=== PATIENT | male | born 1960 | race Caucasian/White ===

== ENCOUNTER 2017-07-05 06:16 | Observation (INO) | payer OTHER ==
[~2017-07-05] VITALS: Ht 162.6 cm; Wt 144.6 kg
--- NOTE | ~2017-07-05 | HC ---
[facility] [place] [address] [place] [address] CONSULTATION Name: CARLA CHAPMAN Room #: 215-P [facility] M.R.#: [id number] Admission: 07/05/17 Attend Phys: Bebeto Sheikh Discharge: Date of : 60 Report #: [id number] THIS REPORT FOR: //name// CC: Eran Sheikh DATE OF SERVICE: 07/06/2017 HISTORY OF PRESENT ILLNESS: The patient is a 56-year-old single white male who I was asked to see in the hospital today after he complained of chest pain. The patient initially presented in September 2015. He lives in [place] and was having intermittent sharp chest pain that went into his back. He apparently was admitted to [facility] in [place]. He claims that they were not sure why he was having chest pain. He apparently had a GI workup at that time and was found to have hemorrhoids. However, he also did a stress test that was abnormal. He was found to have coronary artery disease. He underwent a heart catheterization by my partner, Dr. Yan. He was found to have a 90% stenosis of the right coronary artery. He then had 3 drug-eluting stents placed in the right coronary artery. He states he had a stress test a year later. He last saw Dr. Yan in December of this year. He states he was doing well until yesterday, he awakened at 2:30 in the morning with a sharp pain in his chest. He took a nitroglycerin , which seemed to help. Yesterday, he was on his way to work, he again had a sharp chest pain. He drove himself to the emergency room here at [facility]. He had the pain off and on yesterday. It was not related to food. He had no recent fever, cough, blood in stool. Denied any belching with the episode. No trauma to his chest and no rash. He was admitted for further evaluation and treatment. PAST MEDICAL HISTORY: Otherwise, significant for no major surgical procedures. He does have a history of hypertension and hyperlipidemia. MEDICATIONS: Include Plavix, amlodipine, fenofibrate, carvedilol, Livalo, Synthroid, aspirin. ALLERGIES: He has intolerance to PENICILLIN. He previously could not tolerate EFFIENT . FAMILY HISTORY: His father had coronary artery bypass surgery. SOCIAL HISTORY: He is , lives in [place]. He works loading trucks. He quit smoking in 2010. Rarely drinks alcohol. REVIEW OF SYSTEMS: He has had no history of stroke, asthma, peptic ulcer disease, liver disease, kidney disease or cancer. [facility] [address] [place] [address] CONSULTATION Name: CARLA CHAPMAN Room #: 215-P [facility] Igor Pedersen#: [id number] Admission: 07/05/17 Attend Phys: Bebeto Sheikh Discharge: Date of : 60 Report #: [id number] PHYSICAL EXAMINATION: GENERAL: Revealed a middle-aged male who was lying in bed. He appeared in no distress. VITAL SIGNS: He had a blood pressure of 130/70, pulse was 50. He was afebrile. HEENT: He was anicteric. Conjunctivae pink. Mucous membranes moist. NECK: Veins nondistended. No carotid bruits heard. His neck was supple. CHEST: Clear to auscultation. CARDIAC: Regular rate and rhythm. No significant murmur. ABDOMEN: Soft, nontender. EXTREMITIES: Had no edema. Posterior tibial pulse 2+ bilaterally. SKIN: Warm and dry. NEUROLOGIC: Nonfocal. DIAGNOSTIC DATA: His ECG was done yesterday, but unfortunately there does not appear to be an ECG in his chart for review at this time. His workup yesterday, he had a chest x-ray that showed cardiomegaly, otherwise clear lung brown. LABORATORY DATA: Sodium 141, creatinine 1.6. White blood cell count 7.1, hemoglobin 14.1. IMPRESSION AND RECOMMENDATIONS: 1. Chest pain. Somewhat atypical for angina. No evidence of acute myocardial infarction. In light of his history of coronary artery disease, I would recommend a nuclear stress test. 2. Hypertension. The patient has been on a calcium haylie and beta haylie. 3. Hyperlipidemia. The patient is on fenofibrate and a statin drug. 4. History of 3 drug-eluting stents in the right coronary artery year and a half ago. The patient is still on Plavix. <ELECTRONICALLY SIGNED> By: Castro Coffey MD, [facility] 07/06/17 1428 [id number] Castro Coffey MD, FAC /nt
--- NOTE | ~2017-07-05 | EKG ---
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
[2017-07-05 06:38] VITALS: BP 144/85
[2017-07-05 06:45] LABS: BASOPHILS 1.1 % (0.0-2.0); EOSINOPHILS 5.2 % (0.0-3.0); HEMATOCRIT 41.3 % (42.0-52.0); HEMOGLOBIN 14.1 gm/dL (14.0-18.0); LYMPHOCYTES 26.9 % (24.0-44.0); MCH 30.2 pg (26.0-34.0); MCHC 34.1 g/dL (28.0-37.0); MCV 88.4 fL (80.0-100.0); MONOCYTES 10.5 % (1.0-8.0); PLATELET COUNT 360 thou/uL (150-400); POLYS 56.3 % (36.0-66.0); RBC 4.67 mil/uL (4.50-6.00); RDW 13.4 % (10.5-14.5); WBC 7.1 thou/uL (4.0-11.0)
[2017-07-05] MEDS ORDERED: PLAVIX 75 MG TA75 M1 PO (06:49)
[2017-07-05 06:52] LABS: ANION GAP 6 mmol/L (7-16); BUN 20 mg/dL (7-18); CALCIUM 9.3 mg/dL (8.5-10.1); CHLORIDE 106 mmol/L (98-107); CO2 29 mmol/L (21-32); CREATININE 1.6 mg/dL (0.7-1.3); GLUCOSE 112 mg/dL (74-106); POTASSIUM 3.9 mmol/L (3.5-5.1); SODIUM 141 mmol/L (136-145)
[2017-07-05] MEDS ORDERED: NORVASC5 MG PO (07:00)
[2017-07-05 07:01] LABS: TROPONIN-I < 0.04 ng/mL (<0.04-0.07)
[2017-07-05] MEDS ORDERED: LEVOTHYROXIN0.075 MG PO (07:01)
[2017-07-05] MEDS ORDERED: UNICOMPLEX M TA1 TA1 PO (07:01)
[2017-07-05] MEDS ORDERED: LIVALO2 MG PO (07:01)
[2017-07-05] MEDS ORDERED: ECOTRIN325 MG PO (07:01)
[2017-07-05] MEDS ORDERED: COREG6.25 MG PO (07:01)
[2017-07-05] MEDS ORDERED: FENOFIBRATE160 MG PO (07:01)
[2017-07-05 07:02] LABS: MANUAL DIFF NO
[2017-07-05] MEDS ORDERED: NITROGLYCERIN0.4 MG SUBLING (07:02)
[2017-07-05 10:13] VITALS: BP 134/79
[2017-07-05 11:15] VITALS: BP 149/912
[2017-07-05 11:24] VITALS: BP 148/81
[2017-07-05 15:18] VITALS: BP 123/78
[2017-07-05 19:41] VITALS: BP 133/74
[2017-07-06 03:39] VITALS: BP 129/70
[2017-07-06 16:31] VITALS: BP 133/79
[2017-07-06 18:25] VITALS: BP 133/79
[2017-07-07 04:36] VITALS: BP 106/77
== END 2017-07-06 18:30 | disposition home or self-care (01) ==
LOC: ER 06:16 → EROBS 10:11 → 2N 10:11
PROVIDERS: Emergency Medicine
DX: I25.10 Atherosclerotic heart disease of native coronary artery without angina pectoris (principal); E78.5 Hyperlipidemia, unspecified; E03.9 Hypothyroidism, unspecified; Z95.5 Presence of coronary angioplasty implant and graft